=== PATIENT | female | born 1985 | race Caucasian/White ===

== ENCOUNTER 2020-04-14 10:46 | Outpatient (REF) | payer MEDICAID, SELFPAY ==
--- NOTE | ~2020-04-14 | XR_ITS ---
EXAMINATION: XR CHEST CLINICAL INFORMATION: 4-5 week history of cough. COMPARISON: None TECHNIQUE: 2 views of the chest were obtained. FINDINGS: No significant abnormality is noted involving the heart, lungs, mediastinum, bony thorax or soft tissues. XR/XR chest 2V IMPRESSION: Unremarkable examination.
== END 2020-04-14 10:47 | disposition home or self-care (01) ==
LOC: HO.XRAY 10:46
PROVIDERS: Visit Provider Nurse Practitioner Family
DX: R05 Cough (principal)
CPT/HCPCS: 71046

== ENCOUNTER 2021-03-05 09:04 | Outpatient (REF) | payer MEDICAID, SELFPAY ==
--- NOTE | 2021-03-05 | PFT_ITS ---
FLOWS: FEV1 108% of predicted at 3.02 L. FVC 114% of predicted at 3.78 L. FEV1 to FVC ratio of 0.80 Positive bronchodilator response. LUNG VOLUMES: Total lung capacity 115% of predicted at 5.32 L. Residual volume 121% of predicted at 1.66 L. Slow vital capacity 113% of predicted at 3.66 L. Expiratory reserve volume 84% of predicted at 0.97 L. Diffusion capacity is normal. IMPRESSION: No obstructive or restrictive ventilatory defect. Positive bronchodilator response. Increased residual volume suggest air trapping. James Hilario MD AP/MODL / [id number]
== END 2021-03-05 09:05 | disposition home or self-care (01) ==
LOC: HO.RESP 09:04
PROVIDERS: PCP Registered Nurse Community Health; Visit Provider Registered Nurse Community Health
DX: J45.30 Mild persistent asthma, uncomplicated (principal)
CPT/HCPCS: 94060; 94727; 94729

== ENCOUNTER 2023-08-22 14:50 | Outpatient (REF) | payer MEDICAID, SELFPAY ==
[2023-08-22 16:08] LABS: Estimated Average Glucose 103 mg/dL; Hemoglobin A1C 114.2069 umol/L; Hemoglobin A1c % 5.2 % (<6.0)
[2023-08-22 16:33] LABS: Alanine Aminotransferase 11 U/L (0-31); Albumin Level 4.4 g/dL (3.5-5.0); Alkaline Phosphatase 65 U/L (39-117); Anion Gap 10 (12-20); Aspartate Amino Transferase 16 U/L (5-31); Bilirubin Total 0.4 mg/dL (0.0-1.0); Blood Urea Nitrogen 11 mg/dL (9-16); Calcium 9.3 mg/dL (8.4-10.2); Carbon Dioxide 25 mmol/L (22-29); Chloride 108 mmol/L (96-108); Cholesterol 265 mg/dL (<200); Estimated Glomerular Filt Rate > 60; Glucose Random 86 mg/dL (60-115); HDL Cholesterol 57 mg/dL (>40); LDL Cholesterol Calculated 192 mg/dL (<100); Potassium 3.6 mmol/L (3.3-5.1); Sodium 139 mmol/L (135-145); Total Protein 7.6 g/dL (6.5-8.0); Triglycerides 82 mg/dL (<150)
[2023-08-22 16:49] LABS: Thyroid Stimulating Hormone 28.06 uIU/mL (0.32-4.0)
[2023-08-22 20:01] LABS: CT PCR NOT DETECTED (Not Detect.); NG PCR NOT DETECTED (Not Detect.)
[2023-08-23 08:43] LABS: HIV AB/AG Nonreactive (Nonreactive); ~Hepatitis C Antibody Nonreactive (Nonreactive)
[2023-08-24 06:38] LABS: RPR Rapid Plasma Reagin NON-REACTIVE (NON-REACTIVE)
== END 2023-08-22 14:51 | disposition home or self-care (01) ==
LOC: HO.HHCL 14:50
PROVIDERS: Visit Provider Nurse Practitioner Family
DX: Z00.00 Encounter for general adult medical examination without abnormal findings (principal); E03.8 Other specified hypothyroidism; E66.3 Overweight
CPT/HCPCS: 36415; 80053; 80061; 83036; 84443; 86592; 86803; 87389; 87491; 87591